=== PATIENT | female | born 1975 | race Caucasian/White ===

== ENCOUNTER → 2016-07-12 | Outpatient (CLI) | payer BC ==
[~2016-07-12] MED LIST: MTR600X PO; MULT-513 PO; VALA500T60 PO; ZNT/150 PO
[2016-07-12 11:08] LABS: HEMATOCRIT 32.8 % (37-47)
[2016-07-12 11:41] LABS: GTGD 50 Grams
[2016-07-12 12:02] LABS: URINE APPEARANCE CLEAR (CLEAR); URINE BILIRUBIN NEG (NEG); URINE COLOR YELLOW; URINE NITRITE NEG (NEG); UROBILINOGEN NEG (NEG)
[2016-07-12 12:05] LABS: MANUAL MICROSCOPIC REQUIRED? NO; REVIEW REQ? NO
== END | disposition home or self-care (01) ==
LOC: C.LAB1850 09:30
PROVIDERS: ATTEND Obstetrics & Gynecology
DX: O09.523 Supervision of elderly multigravida, third trimester (principal); Z3A.00 Weeks of gestation of pregnancy not specified

== ENCOUNTER → 2016-08-17 | Outpatient (CLI) | payer BC ==
[2016-08-20 20:36] LABS: PARVOVIRUS IgG INDEX 7.3 (<0.9); PARVOVIRUS IgM INDEX 0.2 (<0.9)
== END | disposition home or self-care (01) ==
LOC: C.LAB1850 13:27
PROVIDERS: ATTEND Obstetrics & Gynecology
DX: Z20.828 Contact with and (suspected) exposure to other viral communicable diseases (principal)

== ENCOUNTER → 2016-09-06 | Outpatient (CLI) | payer BC | END | disposition home or self-care (01) | LOC: C.LABSPEC 11:32 | PROVIDERS: ATTEND Obstetrics & Gynecology | DX: O09.523 Supervision of elderly multigravida, third trimester (principal); Z3A.00 Weeks of gestation of pregnancy not specified ==

== ENCOUNTER 2016-09-27 21:52 | Inpatient (IN) | payer BC ==
[~2016-09-27] VITALS: Ht 170.2 cm; Wt 99.5 kg
[~2016-09-27 21:52] MED LIST changes: -VALA500T60 PO
[2016-09-27] MEDS ORDERED: VALA500T60 PO (22:50)
[2016-09-27 22:51] VITALS: Ht 170.2 cm; Wt 99.5 kg
[2016-09-28] MEDS ORDERED: LACTATED RINGER'S 1000ML 1,000 ML IV PRN (01:23)
[2016-09-28] MEDS ORDERED: LACTATED RINGER'S 1000ML 1,000 ML IV SCH (01:23)
[2016-09-28 01:59] LABS: HEMATOCRIT 37.6 % (37-47); MEAN CELL VOLUME 91.5 fL (80-100); MEAN CORPUSCULAR HEMOGLOBIN 31.1 pg (25-34); MEAN PLATELET VOLUME 10.2 fL (7.4-10.4); PLATELET COUNT 151 K/uL (130-400); RED BLOOD COUNT 4.11 M/uL (4.2-5.4); WHITE BLOOD COUNT 14.54 K/uL (4.8-10.8)
[2016-09-28] MEDS ORDERED: EpHEDrine SULFATE INJ 50 MG/ML AMP ONE (02:03)
[2016-09-28] MEDS ORDERED: BUPIVACAINE 0.25% 30 ML VIAL ONE (02:03)
[2016-09-28] MEDS ORDERED: FENTANYL 2MCG/ML ROPIV 1.25MG/ML 100ML BAG EPI ONE (02:04)
[2016-09-28] MEDS ORDERED: FENTANYL CITRATE INJ 50 MCG/1 ML 2 ML VIAL ONE (02:04)
[2016-09-28] MEDS ORDERED: NALOXONE HCL INJ 1 MG in SODIUM CHLORIDE 0.9% 1000ML 1,000 ML IV PRN (02:37)
[2016-09-28] MEDS ORDERED: LACTATED RINGER'S 1000ML 500 ML IV PRN ×2 (02:37→03:44)
[2016-09-28] MEDS ORDERED: EpHEDrine SULFATE INJ 50 MG/ML AMP IV PRN (02:45)
[2016-09-28] MEDS ORDERED: NALBUPHINE HCL INJ 10 MG/ML AMP IV PRN (02:45)
[2016-09-28] MEDS ORDERED: FENTANYL 2MCG/ML ROPIV 1.25MG/ML 100ML BAG EPI PRN (02:45)
[2016-09-28] MEDS ORDERED: NALOXONE HCL INJ 0.4 MG/1 ML VIAL/CARP IV PRN (02:45)
[2016-09-28] MEDS ORDERED: ONDANSETRON INJ 2 MG/ML 2 ML VIAL IV PRN (02:45)
[2016-09-28] MEDS ORDERED: DiphenhydrAMINE HCL 50 MG/ML VIAL IV PRN (02:45)
[2016-09-28] MEDS ORDERED: PROMETHAZINE HCL INJ 6.25 MG in SODIUM CHLORIDE 0.9% 50ML 50 ML IV PRN (02:45)
[2016-09-28] MEDS ORDERED: OXYTOCIN 30 UNITS/500ML NSS IV PRN ×2 (03:45→06:15)
--- NOTE | 2016-09-28 05:32 | Anesthesia Procedure Note ---
Anesthesia Epidural Removal Nt Date & Time September 28, 2016 at 05:32 Vital Signs Pain Intensity: 0.0 Notes Mental Status: alert / awake / arousable, participated in evaluation Nausea / Vomiting: adequately controlled Pain: adequately controlled Airway Patency, RR, SpO2: stable & adequate BP & HR: stable & adequate Hydration State: stable & adequate Neuraxial Anesthesia: was administered Anesthetic Complications: no major complications apparent, pt satisfied with anesthetic care Epidural: removed without complications, with tip intact
[2016-09-28] MEDS ORDERED: LANOLIN OINT EXT PRN ×2 (06:15)
[2016-09-28] MEDS ORDERED: BENZOCAINE 20% AER SPR 82.5 GM CAN EXT PRN (06:15)
[2016-09-28] MEDS ORDERED: ACETAMINOPHEN/CODEINE 300/30MG TAB PO PRN ×2 (06:15)
[2016-09-28] MEDS ORDERED: ACETAMINOPHEN 325 MG TAB PO PRN (06:15)
[2016-09-28] MEDS ORDERED: MEASLES, MUMPS & RUBELLA VIRUS VIAL SQ. ONE (06:15)
[2016-09-28] MEDS ORDERED: DIPHTHERIA/TETANUS/PERTUSSIS 0.5 ML SYR/VIAL IM. ONE (06:15)
[2016-09-28] MEDS ORDERED: SUPERCREAM 0.870 % 15GM JAR EXT PRN (06:15)
[2016-09-28] MEDS ORDERED: HYDROCORTISONE ACETATE 25 MG SUPP PR PRN (06:15)
--- NOTE | 2016-09-28 07:07 | DELIVERY SUMMARY ---
DATE OF OPERATION: 09/28/2016 DATE OF DELIVERY: 09/28/2016. FINDINGS: Viable female with Apgars of 7 and 9. Baby delivered spontaneously over a midline second-degree laceration. Cord gasses, cord blood samples were obtained. Placenta delivered spontaneously. Laceration repaired with 4-0 Vicryl in a routine fashion. Estimated blood loss was 300 mL. LABOR NOTE: The patient is a 41-year-old 4, para 1 with an EDC of 02 October by dates and first trimester ultrasound, who presented to labor and delivery for evaluation of contractions. The patient states that she has been having contractions earlier in the evening that had increased in intensity. She denied rupture of membranes or vaginal bleeding. The patient had a normal Free Cell DNA screen of her advanced maternal age. Her maternal serum AFP was elevated at a risk of 1 in 90. Ultrasound was reassuring of the spine. The patient was followed with the greater than 40 protocol. Her NSTs and AFIs have all been reassuring. She had a echo, which showed a possible small VSD and followup echo after delivery was recommended. The patient's blood type is A positive, antibody negative, rubella non-immune, hepatitis B negative, normal 1 hour Glucola x2 and a negative third trimester beta strep culture. The patient initially was 1 cm dilated, 50% effaced and -2 station. She ambulated for several hours and repeat check showed cervical change to 3 cm. At this point, she was admitted and then received an epidural. Upon the epidural, her contractions spaced out and she was started on Pitocin per induction protocol. She progressed to full dilatation with spontaneous rupture of membranes. She pushed for approximately 10 minutes delivering a viable female . Cord was clamped and cut. Cord gasses and cord blood samples were obtained. Placenta was delivered spontaneously, sent for pathological evaluation. Inspection of the perineum showed a midline second-degree laceration. This was repaired with 4-0 Vicryl in a routine fashion. Estimated blood loss was 300 mL. Sponge and needle count was correct. I attest to the content of the Intraoperative Record and any orders documented therein. Any exceptio ns are noted below.
--- NOTE | 2016-09-28 08:03 | Anesthesia Procedure Note ---
Anesthesia Epidural Removal Nt Date & Time September 28, 2016 at 08:04 Vital Signs Pain Intensity: 0.0 Notes Mental Status: alert / awake / arousable, participated in evaluation Nausea / Vomiting: adequately controlled Pain: adequately controlled Airway Patency, RR, SpO2: stable & adequate BP & HR: stable & adequate Hydration State: stable & adequate Neuraxial Anesthesia: was administered Anesthetic Complications: no major complications apparent, pt satisfied with anesthetic care Epidural: removed without complications, with tip intact
[2016-09-28] MEDS: FERROUS SULFATE 325 MG TAB PO SCH (09:31)
[2016-09-28] MEDS: PRENATAL VITAMIN TAB PO SCH (09:31)
[2016-09-28] MEDS: DOCUSATE SODIUM 100 MG CAP PO SCH ×2 (09:31→19:03)
[2016-09-28 10:15] VITALS: BP 126/62; PULSE 65; TEMP 37
[2016-09-28 11:45] VITALS: BP 145/73; PULSE 56; TEMP 36.4; O2SAT 97
[2016-09-28 15:35] VITALS: BP 127/72; PULSE 56; TEMP 36.7
[2016-09-28] MEDS: IBUPROFEN 600 MG TAB PO PRN (19:04)
[2016-09-28 20:15] VITALS: BP 156/73; PULSE 64; TEMP 36.6
[2016-09-29 00:15] VITALS: BP 112/70; PULSE 51; TEMP 36.8
[2016-09-29 04:40] VITALS: BP 111/66; PULSE 47; TEMP 36.3
--- NOTE | 2016-09-29 06:48 | Progress Note ---
Subjective September 29, 2016. Subjective conversation w/ patient, physical exam, lab review Ambulation: ambulating normally Voiding: no voiding problems Passing Gas: Yes Diet Tolerance: Regular Diet Lochia: Small Feeding Type: Breast Feeding Pain: denies pain Comment: Patient was seen at the bedside. No acute event overnight. Review of Systems Constitutional: No fever Respiratory: No cough, No shortness of breath Cardiac: No chest pain, No edema Breast: No breast lump Abdomen: No nausea, No pain, No vomiting Female : No dysuria, No urinary frequency Denies headache Objective Vital Signs Date Time Temp Pulse Resp B/P Pulse Ox O2 Delivery O2 Flow Rate FiO2 09/29/16 04:40 36.3 47 18 111/66 Room Air 09/29/16 00:15 Room Air 09/29/16 00:15 36.8 51 16 112/70 Room Air 09/28/16 20:15 36.6 64 18 156/73 Room Air 09/28/16 15:35 36.7 56 16 127/72 Room Air 09/28/16 15:35 Room Air 09/28/16 11:45 36.4 56 18 145/73 97 Room Air 09/28/16 10:15 Room Air 09/28/16 10:15 37.0 65 18 126/62 Physical Exam General Appearance: WELL-APPEARING, WD/WN, NO APPARENT DISTRESS Respiratory/Chest: chest non-tender, lungs clear, normal breath sounds, no respiratory distress Cardiovascular: regular rate, rhythm Abdomen: normal bowel sounds, non tender, soft Fundus: Firm, Relation to Umbilicus (about 1cm below U) Extremities: non-tender, no pedal edema, no calf tenderness Laboratory Results Last 24 Hours Test 09/29/16 04:44 Medications Current Inpatient Medications Medications (Trade) Dose Ordered Sig/Jose A Route Start Time Stop Time Status Last Admin Dose Admin Lactated Ringer's 1,000 ml @ 125 mls/hr Q8H IV 09/28/16 01:23 09/30/16 01:22 09/28/16 06:25 125 MLS/HR Lactated Ringer's (Lr 1000ml) 1,000 ml @ 999 mls/hr Q1H1M PRN IV 09/28/16 01:23 10/28/16 01:22 Oxytocin 30 units 30 units UD PRN IV 09/28/16 03:45 10/28/16 03:44 09/28/16 04:29 30 UNITS Lactated Ringer's (Lr 1000ml) 500 ml @ 999 mls/hr Q31M PRN IV 09/28/16 03:44 10/28/16 03:43 Oxytocin (Pitocin IV) 30 units UD PRN IV 09/28/16 06:15 10/28/16 06:14 Benzocaine (Dermoplast Aero Spr) 1 appln PRN PRN EXT 09/28/16 06:15 10/28/16 06:14 09/28/16 09:32 1 APPLN Cocaine HCl (Supercream 0.870% Cr) BID PRN EXT 09/28/16 06:15 10/12/16 06:14 09/28/16 19:07 15 GM Hydrocortisone Acetate (Anusol Hc Supp) 25 mg BID PRN VA 09/28/16 06:15 10/28/16 06:14 Lanolin (Lanolin Oint) PRN PRN EXT 09/28/16 06:15 10/28/16 06:14 Prenat Multivit/ [place]/Iron/Folic Ac ( Vitamin Tab) 1 tab DAILY PO 09/28/16 08:00 10/28/16 07:59 09/28/16 09:31 1 TAB Ibuprofen (Motrin Tab) 600 mg Q4H PRN PO 09/28/16 06:15 10/28/16 06:14 09/28/16 19:04 600 MG Acetaminophen (Tylenol Tab) 650 mg Q6H PRN PO 09/28/16 06:15 10/28/16 06:14 Acetaminophen/ Codeine Phosphate (Tylenol w/ Codeine #3 Tab) 1 tab Q4H PRN PO 09/28/16 06:15 10/28/16 06:14 Acetaminophen/ Codeine Phosphate (Tylenol w/ Codeine #3 Tab) 2 tab Q4H PRN PO 09/28/16 06:15 10/28/16 06:14 Bisacodyl (Dulcolax Tab) 5 mg 20 PO 09/29/16 20:00 09/29/16 20:01 Docusate Sodium (coLACE CAP) 100 mg BID PO 09/28/16 08:00 10/28/16 07:59 09/28/16 19:03 100 MG Ferrous Sulfate (Feosol Tab) 325 mg DAILY PO 09/28/16 08:00 10/28/16 07:59 09/28/16 09:31 325 MG Assessment and Plan Post- Day#: 1 Continue Routine Care: A/P: This is a 41 y/o female, , s/p normal vaginal delivery. She is ambulating and clinically stable. Plan: - Vitals signs are reviewed and WNL (Tmax 37 ) - Last Hgb is 12.8 - Blood type A+, GBS neg, Rubella equivocal - Routine care - Encourage ambulation, monitor and control pain with medication as needed , continue with regular diet as tolerated and monitor lochia - Stool softeners and sitz bath recommended - Encourage breast feeding and educate about breast feeding Resident Physician Supervision Note: I was present with Dr. Tolentino during the history and exam. I discussed the case with the resident and agree with the findings and plan as documented in the note. Any exceptions or clarifications are listed here: PPD#1 doing well. Continue care. OK to discharge today if patient desires. Documented By: Leatha Perez
[2016-09-29 06:52] LABS: HEMATOCRIT 32.5 % (37-47)
[2016-09-29 07:35] VITALS: BP 116/69; PULSE 56; TEMP 36.7; O2SAT 98
--- NOTE | 2016-09-29 07:40 | Discharge Instructions ---
Discharge Instructions Date of Service September 29, 2016. Admission Reason for Admission: Supervision Of Elderly Multigravida In Third Discharge Discharge Diagnosis / Problem: s/p vaginal delivery Discharge Goals Goal(s): Routine recovery after delivery Medications Continue Dispensed Medications: supercream, dermaplast, tucks, lansinoh Activity Recommendations Activity Limitations: as noted below . Instructions / Follow-Up Instructions / Follow-Up ACTIVITY RECOMMENDATIONS: * Gradual return to full activity over the next 2-3 weeks. * No lifting - nothing heavier than baby over the next 2-3 weeks. * Do not engage in vigorous exercise, sexual activity or sports until cleared by your physician. * Do not drive or operate any motorized equipment until cleared by your physician. * You may shower/bathe daily. MEDICATIONS: For discomfort or pain, you may use Acetaminophen (Tylenol), Ibuprofen (Advil), or Naproxen (Aleve) following the package directions. For constipation you may use Colace following the package directions. BREAST CARE: If you are not breast feeding: * Wear a supportive bra 24 hours a day for one to two weeks. * Avoid stimulating your breasts and nipples as much as possible during the first few weeks after delivery. * When taking a shower, have the warm water hit your back, not breasts. * When your breasts feel full, apply ice packs. Usually three to four times a day helps ease the discomfort. * Take a mild pain medication (Tylenol / Motrin) when you are uncomfortable. If breast feeding: * Use breast milk to lubricate nipples. Lansinoh cream may be used for sore nipples. You do not need to remove cream prior to breast feeding. If using a different brand of cream, check the label for directions regarding removal of cream prior to nursing. * Wear a supportive bra. * If having problems with breasts or breast feeding, call a operations consultant or your health care provider. EPISIOTOMY CARE: After delivery, if you have an episiotomy (stitches), the following steps will ease discomfort and aid healing. * For the first 24 hours after delivery, place ice packs next to your episiotomy to help reduce swelling. * After the first 24 hour-period, sitz baths, either portable or in the tub, are suggested. A shower with a shower arm sprayed over the episiotomy may be comforting. * Daja care should be done after each voiding and bowel movement. Squirt warm water from a plastic bottle over the perineum (region of the body between the anus and urinary opening) and pat dry. * Use Dermoplast to ease discomfort. Shake container. [place] directly over the episiotomy. Place a Tucks on a clean sanitary pad next to your episiotomy. SPECIAL CARE INSTRUCTIONS: When you are discharged from the hospital, it is important for you to follow the instructions listed below: * During the first week at home, you should be able to care for yourself and your baby. In addition, the usual light household activities are encouraged. * Limit your activities to the way you feel. Do not try to clean the house or move furniture. Be sensible. * If you actively engage in sports and have done so up until the time of your delivery, you may resume these activities as soon as you feel able. This may take up to one month or even longer. Use good judgment. * Continue to take your vitamins for at least six weeks after the of your baby. * Your diet need not be limited unless you were on a special diet before your delivery. Breast-feeding mothers need around 2500 calories per day and at least 64-80 ounces of fluid per day (8 to 10 glasses). * You should eat foods from the four major food groups. Crash diets or fad diets are to be avoided. Eating lean meats, fresh fruits and vegetables, low-fat dairy products, high fiber foods and a regular exercise program, will help you get back to your pre- weight without putting your health at risk. * Constipation is sometimes a problem after delivery. Take a mild laxative as needed. If breast feeding, Milk of Magnesia is acceptable to use. You may use a suppository or Fleets enema if no episiotomy. * A daily shower or tub bath is suggested. Be sure to thoroughly and gently dry the perineum. * A bloody vaginal discharge will usually continue until around four weeks post . A small amount of bleeding may continue for as long as six weeks. Vaginal discharge changes from the bright red bleeding after delivery to pink then brownish and finally yellowish-pink before becoming white and disappearing. * Bleeding may increase with activity. Your first period may come in 4-8 weeks. If you are breast feeding, your period may be delayed even longer. * [place] (sex) can begin whenever both you and your partner feel comfortable and do not have any form of genital infection. It is recommended that you wait at least six weeks for internal and external healing to occur. If you have questions, please talk to your health care practitioner. A condom should be used to prevent infection and . * Foreplay, gentle intercourse and lubrication is very important the first several times to prevent pain. A water-based lubricant such as K-Y jelly or Astroglide may be used. * If you have RH negative blood and your baby is RH positive, you will receive RHOGAM by injection prior to discharge. The nurse will give you a card to keep with you that has the date and place that you received RHOGAM after delivery. * During your care, you had a Rubella screen done to check for the presence of rubella antibodies in your blood. If your test was negative, you will receive a Rubella vaccine prior to discharge. This vaccine may cause a fever, soreness at the injection site and flu-like symptoms. If these symptoms persist, notify your health care practitioner. is not advised for one month after a Rubella vaccine. * Verbalizes understanding of car seat law as reviewed with patient nursing. * Car Seat hand-out given and reviewed with patient by nursing. * Shaken baby information reviewed with patient by nursing. Call you doctor if: * Heavy bleeding (saturating several pads an hour) or passing clots the size of your fist. * A fever >101 degrees F (38.3 degrees C) on two occasions four hours apart and /or chills. * Unusual pain in the pelvic or vaginal areas. * "Baby Blues" lasting longer than two weeks. If you have any questions or concerns, call your health care practitioner at . FOLLOW UP VISIT: * Please call the office at to schedule a 6 week examination. It is important you keep this appointment. It is important for you to make arrangements for either yearly or twice yearly check-ups thereafter. Current Hospital Diet Patient's current hospital diet: Regular OB Diet Discharge Diet Recommended Diet: Regular Diet Pending Studies Studies pending at discharge: no Medical Emergencies . Who to Call and When: Medical Emergencies: If at any time you feel your situation is an emergency, please call 911 immediately. . Non-Emergent Contact Non-Emergency issues call your: Aircraft Cleaning Supervisor Call Non-Emergent contact if: you have a fever, temperature is above 101 . . "Provider Documentation" section prepared by Tommy Tolentino. . VTE Core Measure Inpt VTE Proph given/why not?: Treatment not indicated
[2016-09-29] MEDS: DOCUSATE SODIUM 100 MG CAP PO SCH (08:26)
[2016-09-29] MEDS: FERROUS SULFATE 325 MG TAB PO SCH (08:26)
[2016-09-29] MEDS: PRENATAL VITAMIN TAB PO SCH (08:26)
[2016-09-29] MEDS: IBUPROFEN 600 MG TAB PO PRN (13:42)
[2016-09-29 14:27] VITALS: BP_DIAS 69; PULSE 56; TEMP 36.7
[2016-09-29] MEDS ORDERED: BISACODYL 5 MG TABEC PO SCH (20:00)
== END 2016-09-29 16:45 | disposition home or self-care (01) | DRG 774 ==
LOC: C.OPB 21:52 → C.LD 21:53 → C.OPB 09-28 01:25 → C.OBG 09-28 10:17
PROVIDERS: ADMIT Obstetrics & Gynecology; ATTEND Obstetrics & Gynecology
PROC: 0KQM0ZZ Repair Perineum Muscle, Open Approach (ICD-10-PCS; principal; 2016-09-28)
PROC: 4A1HXCZ Monitoring of Products of Conception, Cardiac Rate, External Approach (ICD-10-PCS; principal; 2016-09-28)
PROC: 10E0XZZ Delivery of Products of Conception, External Approach (ICD-10-PCS; principal; 2016-09-28)
DX: O09.523 Supervision of elderly multigravida, third trimester (principal); O98.52 Other viral diseases complicating childbirth; O99.42 Diseases of the circulatory system complicating childbirth; O99.513 Diseases of the respiratory system complicating pregnancy, third trimester; J45.909 Unspecified asthma, uncomplicated; Z88.2 Allergy status to sulfonamides; B00.9 Herpesviral infection, unspecified; Z3A.39 39 weeks gestation of pregnancy; Z37.0 Single live birth; I34.1 Nonrheumatic mitral (valve) prolapse; O70.1 Second degree perineal laceration during delivery

== ENCOUNTER → 2016-11-11 | Outpatient (CLI) | payer BC ==
[~2016-11-11] MED LIST changes: -MTR600X PO; +VALA500T60 PO
== END | disposition home or self-care (01) ==
LOC: C.PAPS 11:08
PROVIDERS: ATTEND Obstetrics & Gynecology
DX: Z12.4 Encounter for screening for malignant neoplasm of cervix (principal)

== ENCOUNTER → 2016-11-11 | Outpatient (CLI) | payer BC | END | disposition home or self-care (01) | LOC: C.LABSPEC 16:59 | PROVIDERS: ATTEND Podiatrist Primary Podiatric Medicine | DX: B35.1 Tinea unguium (principal) ==

== ENCOUNTER → 2017-04-05 | Outpatient (CLI) | payer BC ==
--- NOTE | 2017-04-05 10:34 | DIAGNOSTIC IMAGING REPORT ---
ABDOMINAL ULTRASOUND, RIGHT UPPER QUADRANT HISTORY: R10.11 Abdominal discomfort in right upper quadrant please evaluate. COMPARISON: None. FINDINGS: Pancreas: The pancreas demonstrates a normal echotexture. Liver: Unremarkable. Gallbladder: No gallbladder wall thickening. No gallstones. CBD: 3 mm. Right kidney: No hydronephrosis. IMPRESSION: No significant abnormality identified within the right upper quadrant. Electronically signed by: Edmar Gardiner M.D. 04/05/2017 10:33 AM Dictated Date/Time: 04/05/2017 10:32 AM
== END | disposition home or self-care (01) ==
LOC: C.ULTR 09:58
PROVIDERS: ATTEND Nurse Practitioner
DX: R10.11 Right upper quadrant pain (principal)

== ENCOUNTER → 2017-07-26 | Outpatient (CLI) | payer BC ==
--- NOTE | 2017-07-26 19:38 | DIAGNOSTIC IMAGING REPORT ---
R VENOUS DOPP LOWER EXT UNILAT HISTORY: 42 years-old Female R LEG PAIN R/O DVT acute right lower extremity pain and swelling COMPARISON: None available TECHNIQUE: Multiple real-time sonographic images of the right lower extremity deep venous structures were obtained assessing grayscale appearance, color and spectral flow FINDINGS: There is normal compressibility, flow phasicity and augmentation of the right lower extremity deep venous structures. IMPRESSION: No sonographic evidence of deep venous thrombosis. The above report was generated using voice recognition software. It may contain grammatical, syntax or spelling errors. Electronically signed by: Eldon Retana M.D. 07/26/2017 7:37 PM Dictated Date/Time: 07/26/2017 7:36 PM
== END | disposition home or self-care (01) ==
LOC: C.ULTR 18:42
PROVIDERS: ATTEND Family Medicine
DX: M79.604 Pain in right leg (principal)

== ENCOUNTER 2017-09-24 20:00 | Emergency (ER) | payer BC ==
[~2017-09-24] VITALS: Ht 170.2 cm; Wt 81.6 kg
[2017-09-24 20:07] VITALS: TEMP 36.7; Ht 170.2 cm; Wt 81.6 kg
[2017-09-24] MEDS ORDERED: MECLIZINE HCL 25 MG TAB PO STA (20:24)
[2017-09-24] MEDS ORDERED: SODIUM CHLORIDE 0.9% 1000ML 1,000 ML IV STA (20:24)
[2017-09-24 20:46] LABS: BASO % 0.3 %; BASO ABS # 0.02 K/uL (0-0.2); EOS % 0.8 %; EOS ABS # 0.06 K/uL (0-0.5); HEMATOCRIT 39.6 % (37-47); HEMOGLOBIN 13.8 g/dL (12.0-16.0); IG# 0.01 K/uL (0.00-0.02); LYMPH % 44.5 %; LYMPH ABS # 3.17 K/uL (1.2-3.4); MEAN CORPUSCULAR HGB CONC 34.8 g/dl (32-36); MEAN PLATELET VOLUME 10.3 fL (7.4-10.4); MONO ABS # 0.71 K/uL (0.11-0.59); NEUT % 44.3 %; NEUT ABS # 3.16 K/uL (1.4-6.5); PLATELET COUNT 186 K/uL (130-400); RED CELL DISTRIBUTION WIDTH CV 12.8 % (11.5-14.5); RED CELL DISTRIBUTION WIDTH SD 41.6 fL (36.4-46.3); WHITE BLOOD COUNT 7.13 K/uL (4.8-10.8)
[2017-09-24 21:13] LABS: CALCIUM 9.3 mg/dl (8.5-10.1); CREATININE 0.94 mg/dl (0.60-1.20); POTASSIUM 3.5 mmol/L (3.5-5.1)
--- NOTE | 2017-09-24 21:13 | DIAGNOSTIC IMAGING REPORT ---
HEAD CT NONCONTRAST CT DOSE: 537.48 mGy.cm HISTORY: Dizziness. TECHNIQUE: Multiaxial CT images of the head were performed without the use of intravenous contrast. Automated exposure control was utilized for this study. A dose lowering technique was utilized adhering to the principles of ALARA. Comparison: Head CT 01/05/2012. Findings: The paranasal sinuses and mastoid air cells are clear. The calvarium and skull base are intact. The ventricles and sulci are within normal limits. There is no mass, hematoma, midline shift, or acute infarct. Impression: No acute intracranial abnormality. Electronically signed by: Edmar Gardiner M.D. 09/24/2017 9:11 PM Dictated Date/Time: 09/24/2017 9:08 PM
[2017-09-24 22:35] VITALS: BP 109/75; PULSE 46; O2SAT 99
--- NOTE | 2017-09-24 23:58 | EMERGENCY ROOM VISIT NOTE ---
History Report prepared by Han: Kamilah Mayes Under the Supervision of: Dr. Seth Teague M.D. First contact with patient: 20:09 Chief Complaint: DIZZY Stated Complaint: DIZZY,LIGHTHEADED History of Present Illness The patient is a 42 year old female who presents to the Emergency Room with complaints of persistent dizziness starting 3 days ago. She feels as if things are moving even when she is at rest. Her dizziness worsens with moving quickly, moving her head, and going from sitting to standing. She felt improved when she woke up this morning, but since this afternoon, she has been having more frequent dizziness. She has never had this before. She has also felt lightheaded. She had some ringing in her right ear when the dizziness first started. She had diarrhea for the first 2 days. She has felt intermittently nauseous. She feels like she is having some upper jaw pain in her face. Her right toes have felt wet intermittently. Her vision feels slightly blurry and she feels like her peripheral vision is worse. She denies any sinus congestion, hearing loss, or allergies. She denies any fever, numbness, weakness, chest pain , SOB, abdominal pain, urinary symptoms, vomiting, speech difficulty, or trouble walking. She denies any recent head or neck injury. She denies any history of diabetes, hypertension, or other medical problems. She has a family history of diabetes and high cholesterol. She regularly runs and bikes. Her resting heart rate is normally low. She denies any chance of . She is still breast feeding after giving 1 year ago. She denies any control or hormone use. Source of History: patient Onset: 3 days ago Position: head Quality: other (dizziness) Timing: other (persistent) Modifying Factors (Worsening): movement, other (standing up from sitting) Associated Symptoms: + nausea, + diarrhea (resolved), No fevers, No chest pain, No SOB, No vomiting, No abdominal pain, No urinary symptoms, No weakness, No numbness Note: Pt reports lightheadedness, ear ringing, facial pain, blurry vision. Review of Systems See HPI for pertinent positives & negatives. A total of 10 systems reviewed and were otherwise negative. Past Medical & Surgical Medical Problems: (1) Labor established (2) Supervision of elderly multigravida in third trimester (3) Uterine contractions Surgical Problems: (1) Vacuum extraction, delivered, current hospitalization Family History Diabetes mellitus High cholesterol Social History Smoking Status: Never Smoker Marital Status: Occupation Status: employed Current/Historical Medications Scheduled Multivitamins/Minerals (Mvi With Minerals), 1 TAB PO DAILY Ranitidine Hcl (Zantac), 150 MG PO QAM Allergies Coded Allergies: [place] (Verified Allergy, Severe, ANAPHYLAXIS, 09/27/16) Sulfa Drugs (Verified Allergy, Mild, 09/27/16) Sulfamethoxazole (Verified Allergy, Mild, 09/27/16) Trimethoprim (Verified Allergy, Mild, 12/05/13) Physical Exam Vital Signs Date Time Temp Pulse Resp B/P (MAP) Pulse Ox O2 Delivery O2 Flow Rate FiO2 09/24/17 22:35 46 17 109/75 99 09/24/17 20:07 36.7 48 18 99 Room Air Physical Exam Constitutional: Vital signs reviewed. Eyes: Pupils are equal round reactive to light. Conjunctiva are noninjected. ENT: Pharynx is clear without erythema or exudate. Mucous membranes are moist. Neck supple without meningeal signs. TMs normal bilaterally. Respiratory: Clear to auscultation bilaterally. Breath sounds are equal bilaterally. Cardiovascular: Regular rate and rhythm. No rubs or gallops. GI: Soft, nondistended and nontender. Bowel sounds are present. Musculoskeletal: No peripheral edema. No lower extremity tenderness. Integumentary: No cyanosis. Neurological: The patient is awake and alert. Cranial nerves II-XII are intact. Motor is 5 out of 5 all extremities. Sensation is intact to light touch all extremities. Normal speech. No pronator drift. No limb ataxia. Positive head impulse test. Negative test of skew. No rotatory or vertical nystagmus. Normal visual matson by confrontation. Negative Romberg sign. Normal gait with heel to toe and walking on her toes. Psychiatric: Normal affect. Medical Decision & Procedures ER Provider Diagnostic Interpretation: Radiology results as stated below per my review and the radiologist's interpretation: HEAD CT NONCONTRAST CT DOSE: 537.48 mGy.cm HISTORY: Dizziness. TECHNIQUE: Multiaxial CT images of the head were performed without the use of intravenous contrast. Automated exposure control was utilized for this study. A dose lowering technique was utilized adhering to the principles of ALARA. Comparison: Head CT 01/05/2012. Findings: The paranasal sinuses and mastoid air cells are clear. The calvarium and skull base are intact. The ventricles and sulci are within normal limits. There is no mass, hematoma, midline shift, or acute infarct. Impression: No acute intracranial abnormality. Electronically signed by: Edmar Gardiner M.D. 09/24/2017 9:11 PM Dictated Date/Time: 09/24/2017 9:08 PM Laboratory Results 09/24/17 20:33 Red Blood Count 4.45, Mean Corpuscular Volume 89.0, Mean Corpuscular Hemoglobin 31.0, Mean Corpuscular Hemoglobin Concent 34.8, Mean Platelet Volume 10.3, Neutrophils (%) (Auto) 44.3, Lymphocytes (%) (Auto) 44.5, Monocytes (%) (Auto) 10.0, Eosinophils (%) (Auto) 0.8, Basophils (%) (Auto) 0.3, Neutrophils # (Auto ) 3.16, Lymphocytes # (Auto) 3.17, Monocytes # (Auto) 0.71, Eosinophils # (Auto ) 0.06, Basophils # (Auto) 0.02 09/24/17 20:33 Test 09/24/17 20:33 09/24/17 23:00 White Blood Count 7.13 K/uL (4.8-10.8) Red Blood Count 4.45 M/uL (4.2-5.4) Hemoglobin 13.8 g/dL (12.0-16.0) Hematocrit 39.6 % (37-47) Mean Corpuscular Volume 89.0 fL (80-100) Mean Corpuscular Hemoglobin 31.0 pg (25-34) Mean Corpuscular Hemoglobin Concent 34.8 g/dl (32-36) Platelet Count 186 K/uL (130-400) Mean Platelet Volume 10.3 fL (7.4-10.4) Neutrophils (%) (Auto) 44.3 % Lymphocytes (%) (Auto) 44.5 % Monocytes (%) (Auto) 10.0 % Eosinophils (%) (Auto) 0.8 % Basophils (%) (Auto) 0.3 % Neutrophils # (Auto) 3.16 K/uL (1.4-6.5) Lymphocytes # (Auto) 3.17 K/uL (1.2-3.4) Monocytes # (Auto) 0.71 K/uL (0.11-0.59) Eosinophils # (Auto) 0.06 K/uL (0-0.5) Basophils # (Auto) 0.02 K/uL (0-0.2) RDW Standard Deviation 41.6 fL (36.4-46.3) RDW Coefficient of Variation 12.8 % (11.5-14.5) Immature Granulocyte % (Auto) 0.1 % Immature Granulocyte # (Auto) 0.01 K/uL (0.00-0.02) Anion Gap 6.0 mmol/L (3-11) Est Creatinine Clear Calc Drug Dose 86.5 ml/min Estimated GFR () 87.3 Estimated GFR (Non- 75.4 BUN/Creatinine Ratio 15.7 (10-20) Calcium Level 9.3 mg/dl (8.5-10.1) Thyroid Stimulating Hormone (TSH) 3.970 uIu/ml (0.300-4.500) Free Thyroxine 0.90 ng/dl (0.80-1.60) Bedside Urine Test NEG (NEG) Laboratory results as reviewed by me. Medications Administered Medications (Trade) Dose Ordered Sig/Jose A Route Start Time Stop Time Status Last Admin Dose Admin Sodium Chloride 1,000 ml @ 999 mls/hr Q1H1M STAT IV 09/24/17 20:24 09/24/17 21:24 DC 09/24/17 21:02 999 MLS/HR ECG Per My Interpretation Indication: other (dizziness) Rate (beats per minute): 42 Rhythm: sinus bradycardia Findings: other (no heart block, no ST elevation, no PVC) ED Course 2011: The patient was evaluated in room C2B. A complete history and physical exam was performed. 2023: Sodium Chloride 1000 ml @ 999 mls/hr IV. 2219: I reevaluated the patient. She is feeling better after IV fluids. She refused meclizine because she was concerned about it passing the in breast milk. I discussed the results, return instructions, and need for follow up. She verbalized agreement of the treatment plan. She was discharged home. Medical Decision This is a 42-year-old female presents with vertigo. Differential diagnosis includes benign positional vertigo, Mnire's disease, labyrinthitis, intracranial hemorrhage, CVA. I did perform a limited focused review of portions of the patient's old chart on the electronic medical record. The patient has had no recent pertinent visits to this hospital. I did evaluate the patient as noted above. The patient is presenting with vertigo for the past several days. It seems to be worse with movement of her head and is associated with some tinnitus. On examination she has no findings consistent with a central cause of vertigo. She has no cerebellar signs. Her symptoms appear to be most consistent with a peripheral cause. IV access was established. The patient was placed on a continuous hall monitor. I did order and personally review the patient's 12-lead EKG as described above. She is bradycardic but she states that she is normally bradycardic. I did order and review the patient's blood work as noted in the electronic medical record. TFTs, electrolytes and CBC are within normal limits. I did order a CT of the head. I did review the images myself as well as the radiology report as described above. There is no evidence of acute intracranial abnormality. I did treat patient with IV normal saline. I did also order meclizine but she declined it as she is breast-feeding. On reexamination she does state that she feels better after the IV fluids. I did discuss the test results with her as well as the limitations of the workup done here. I did recommend close follow- up with her doctor. I did discuss return instructions with her as well. She was discharged in good condition. Medication Reconcilliation Current Medication List: was personally reviewed by me Blood Pressure Screening Patient's blood pressure: Normal blood pressure Blood pressure disposition: Did not require urgent referral Impression Primary Impression: Vertigo Scribe Attestation The scribe's documentation has been prepared under my direct and personally reviewed by me in its entirety. I confirm that the note above accurately reflects all work, treatment, procedures, and medical decision making performed by me. Departure Information Dispostion Home / Self-Care Referrals Kobe Wayne M.D. (PCP) Forms HOME CARE DOCUMENTATION FORM, IMPORTANT VISIT INFORMATION Patient Instructions ED Vertigo Unspecified, My [facility] Additional Instructions You have been examined and treated today on an emergency basis only. This is not a substitute for, or an effort to provide, complete comprehensive medical care. It is impossible to recognize and treat all injuries or illnesses in a single emergency department visit. It is therefore important that you follow up closely with your physician. Call as soon as possible for an appointment. Return for worsening symptoms or if you develop fever, numbness or weakness on one side of your body, difficulties with your speech or walking, or any other concerning symptoms.
== END 2017-09-24 22:38 | disposition home or self-care (01) ==
LOC: C.EDB 20:01 → C.EDC 22:38
DX: R42 Dizziness and giddiness (principal); Z98.890 Other specified postprocedural states; Z88.1 Allergy status to other antibiotic agents; Z88.2 Allergy status to sulfonamides; Z91.018 Allergy to other foods; Z83.3 Family history of diabetes mellitus; Z83.49 Family history of other endocrine, nutritional and metabolic diseases